=== PATIENT | male | born 1980 | race Caucasian/White ===

== ENCOUNTER → 2016-12-15 | Outpatient (CLI) | payer OTHER ==
--- NOTE | 2016-12-15 13:27 | REP ---
MRI LEFT KNEE WITH AND WITHOUT CONTRAST: TECHNIQUE: Axial proton density fat saturation, sagittal proton density T2 STIR, water excitation, coronal proton density, proton density fat saturation. Sagittal T1 fat sat, axial T1 fat sat, post IV gadolinium axial and sagittal T1 fat sat with the intravenous administration of 18 mL gadolinium. The menisci demonstrate no evidence of a tear. The cruciate and collateral ligaments appear intact. Extensor mechanism appears intact. Medial and lateral patellar retinacula appear intact. Mild increased signal in the patellar cartilage particularly along the lateral patellar facet appears to represent mild chondromalacia. No osteochondral defect is seen. No abnormal marrow signal or enhancement is seen. There is no occult fracture. No bone lesions are seen. There is a small joint effusion, with a small amount of fluid extending into the medial popliteal fossa. This extends below the semimembranosus and semitendinosus tendons. There is mild ill-defined high signal and enhancement in the knee joint anteriorly centrally compatible with an area of synovitis. IMPRESSION: No evidence of meniscal tear. Cruciate and collateral ligaments intact. Mild chondromalacia patella. Small joint effusion. Mild synovitis anteriorly in the joint. Signed by Vladimir Real MD 12/15/2016 02:21 P
== END ==
LOC: M RAD 10:12
PROVIDERS: ATTEND Physician Assistant
DX: M25.562 Pain in left knee (principal); M22.42 Chondromalacia patellae, left knee; M65.9 Synovitis and tenosynovitis, unspecified; M25.462 Effusion, left knee
CPT/HCPCS: 73723; A9576

== ENCOUNTER → 2017-01-26 | Outpatient (REF) | payer OTHER ==
[2017-01-26 10:45] LABS: #MOTILE SPERM COUNTED 20.5; % MOTILITY 50 (> 25%); TOTAL # SPERM COUNTED 40.5 M/ml
== END ==
LOC: M LAB REF 09:33
DX: N46.8 Other male infertility (principal)

== ENCOUNTER → 2018-03-05 | Outpatient (REF) | payer OTHER ==
[2018-03-05 12:07] LABS: SEMEN APPEARANCE OPAQUE (OPAQUE); SEMEN VOLUME 3.5 ml (4.0-5.0)
[2018-03-05 12:08] LABS: SEMEN VISCOSITY LIQUID (LIQUID); SEMEN pH 8.5 (7.0-8.0)
[2018-03-05 12:12] LABS: % NORMAL FORMS < 4 % (>=4); IMMOTILITY 49 %; NON PROGRESSIVE MOTILITY (c) 39 %; PROGRESSIVE MOTILITY (a) 12 % (>=32); SPERM CONCENTRATION 8.8 M/ml (>=15.0); SPERM# 30.8 M/Ejac (>=39); TOTAL FUNCTIONAL 0.3 M/Ejac.; TOTAL MOTILITY 51 % (>=40); TOTAL PROGRESSIVE SPERM 3.7 M/Ejac.; WBC CONCENTRATION <=1 M/ml (<=1 M/ml)
== END ==
LOC: M LAB REF 11:41
DX: N46.9 Male infertility, unspecified (principal)
CPT/HCPCS: 89320

== ENCOUNTER → 2018-05-17 | Outpatient (REF) | payer OTHER ==
[2018-05-17 14:15] LABS: #IMMOTILE SPERM COUNTED 1.5; #MOTILE SPERM COUNTED 1; % MOTILITY 40 (> 40%); SEMEN APPEARANCE OPAQUE (OPAQUE); SEMEN VISCOSITY VISCOUS (LIQUID); SEMEN VOLUME 2.5 ML (4.0-5.0); SEMEN WBC <=1 M/ml (<=1 M/ml); SPERM ABNORMAL FORMS WBC'S NOTED; SPERM CONCENTRATION 1.2 M/ml (> 15 M/ml); TOTAL # SPERM COUNTED 2.5 M/ml
== END ==
LOC: M LAB REF 13:40
DX: N46.9 Male infertility, unspecified (principal)

== ENCOUNTER → 2018-11-30 | Outpatient (REF) | payer OTHER ==
[2018-11-30 10:05] LABS: SEMEN APPEARANCE OPAQUE (OPAQUE)
[2018-11-30 10:06] LABS: SEMEN VISCOSITY LIQUID (LIQUID); SEMEN VOLUME 1.5 ML (4.0-5.0); SEMEN WBC >1 M/ml (<=1 M/ml)
== END ==
LOC: M LAB REF 09:30
PROVIDERS: ATTEND Obstetrics & Gynecology Reproductive Endocrinology
DX: N46.9 Male infertility, unspecified (principal)

== ENCOUNTER 2019-02-07 05:55 | Inpatient (IN) | payer OTHER ==
[~2019-02-07] VITALS: Ht 188 cm; Wt 99.3 kg
[2019-02-07] VITALS (8 sets, daily range): BP systolic 133–144; BP diastolic 65–80; O2SAT 98
[2019-02-07] MEDS ORDERED: GABAPENTIN 300 MG CAP PO ONE (06:00)
[2019-02-07] MEDS ORDERED: LR 1,000 ML IV ONE (06:00)
[2019-02-07] MEDS ORDERED: PERCOCET 5MG/325MG TAB PO ONE (06:00)
[2019-02-07] MEDS ORDERED: CLINDAMYCIN 600 MG in APPROPRIATE DILUENT 1 EA IV ONE (06:00)
[2019-02-07] MEDS ORDERED: BUPIVACAINE/EPIN 0.25% 30 ML VIAL As Ordered ONE (07:14)
[2019-02-07] MEDS ORDERED: THROMBIN SOLN 20,000 UNITS KIT As Ordered ONE (07:14)
[2019-02-07] MEDS ORDERED: BUPIVACAINE HCL 0.5% 10 ML VIAL As Ordered ONE (07:15)
[2019-02-07] MEDS ORDERED: BUPIVACAINE LIPOSOME/PF 1.3% 20ML VIAL (13.3MG/ML)(EXPAREL)(C9290 PER1MG) As Ordered ONE (07:15)
[2019-02-07] MEDS ORDERED: EPINEPHrine INJ 1 MG/ML 1ML AMP As Ordered ONE (07:15)
[2019-02-07] MEDS ORDERED: VANCOMYCIN HCL 500 MG/10 ML VIAL (J3370) As Ordered ONE (07:15)
[2019-02-07] MEDS ORDERED: BACITRACIN PWD 50,000 UNITS VIAL As Ordered ONE (07:15)
[2019-02-07] MEDS ORDERED: TRANEXAMIC ACID 100 MG/ML 10ML VIAL As Ordered ONE (07:15)
[2019-02-07] MEDS ORDERED: MIDAZOLAM INJ 2 MG/2 ML VIAL (J2250) As Ordered ONE (07:22)
[2019-02-07] MEDS ORDERED: fentaNYL 100 MCG/2 ML INJECTION (J3010) As Ordered ONE (07:22)
[2019-02-07] MEDS ORDERED: PROPOFOL 200 MG/20 ML VIAL As Ordered ONE (07:22)
[2019-02-07] MEDS ORDERED: LIDOCAINE 2% INJ 100 MG/5 ML SDV (FOR ANES.) As Ordered ONE (07:22)
[2019-02-07] MEDS ORDERED: ONDANSETRON 4MG/2ML VIAL (J2405) As Ordered ONE (07:22)
[2019-02-07] MEDS ORDERED: ROCURONIUM BROMIDE 50 MG/5 ML VIAL As Ordered ONE ×2 (07:22→11:36)
[2019-02-07] MEDS ORDERED: METOCLOPRAMIDE INJ 10MG/2ML VIAL (J2765) As Ordered ONE (07:22)
[2019-02-07] MEDS ORDERED: HYDROmorphone HCL 2 MG/ML 1ML VIAL (J1170) As Ordered ONE (08:12)
[2019-02-07] MEDS ORDERED: dexameTHASONE 4 MG/ML 1ML VIAL (J1100) As Ordered ONE (11:36)
[2019-02-07] MEDS ORDERED: KETOROLAC 60 MG/2 ML VIAL (J1885) As Ordered ONE (11:36)
[2019-02-07] MEDS ORDERED: fentaNYL 100 MCG/2 ML INJECTION (J3010) IV PRN (12:45)
[2019-02-07] MEDS ORDERED: MEPERIDINE INJ 25 MG/ML VIAL (J2175) IV PRN (12:45)
[2019-02-07] MEDS ORDERED: HYDROMORPHONE HCL 0.5 MG/ 0.5 ML SYRINGE (J1170 PER 1) IV PRN ×2 (12:45)
[2019-02-07] MEDS ORDERED: METOCLOPRAMIDE INJ 10MG/2ML VIAL (J2765) IV PRN (12:45)
[2019-02-07] MEDS ORDERED: ONDANSETRON 4MG/2ML VIAL (J2405) IV PRN (12:45)
[2019-02-07] MEDS ORDERED: CYCLOBENZAPRINE 10 MG TAB PO PRN (12:45)
[2019-02-07] MEDS ORDERED: PERCOCET 5MG/325MG TAB PO PRN ×2 (12:45)
[2019-02-07] MEDS ORDERED: ACETAMINOPHEN TAB 650MG DOSE (2X325MG) PO PRN (12:45)
[2019-02-07] MEDS ORDERED: LR 1,000 ML IV SCH (12:45)
[2019-02-07] MEDS ORDERED: PROMETHAZINE INJ 25 MG/ML VIAL (J2550) IV PRN (12:45)
--- NOTE | 2019-02-07 14:03 | RO ---
DATE OF SURGERY: 02/07/2019 PREOPERATIVE DIAGNOSIS: Pars defect with spondylolisthesis at L3-4. POSTOPERATIVE DIAGNOSIS: Pars defect with spondylolisthesis at L3-4. PROCEDURE PERFORMED: L3-L4 intertransverse posterior arthrodesis, L3-4 implantation of nonsegmental instrumentation, harvest and placement of left iliac crest morselized bone graft for spine surgery intertransverse. SURGEON: Jim Castaneda MD FUNERAL ASSISTANT: Michael Blanton, Physician Supervisor Packing Room ANESTHESIA: General. ESTIMATED BLOOD LOSS: Less than 150 mL, replaced with crystalloid. No complications. INDICATIONS: Significant back discomfort that limits his activities with plain film and MRI evidence of pars defect bilateral at L3-4. CONSENT: Reviewed in detail, including a walter discussion of the pathology involved. procedure proposed, alternatives including doing nothing, risks including but not limited to pain, failure, infection, bleeding, blood loss, incomplete relief of symptoms, nerve injury, need for more surgery, or other problems. The patient agrees to proceed with surgery. OPERATIVE COURSE: Identified in the holding area. Site and side verified. Brought to the operating room once general endotracheal anesthesia was administered. He was positioned in the prone position for exposure of the lumbar spine on the Kiel frame. Next, once I and the tar boiler were comfortable with the patient's positioning, he was sterilely prepped and draped in the usual fashion. Landmarks were palpated. Incision was outlined with a marking pen. I stood initially on the patient's left side. Mr. Blanton on the right side. I wore loupe magnification throughout. Next, line of the incision was infiltrated with 0.25% Marcaine with epinephrine. The incision was about three fingerbreadths wide, made with a #10 blade, developed down through skin and subcuticular tissues to the posterior lumbar fascia. Dissection continued down the spinous process of 3 over the lamina of 3. A divot was drilled in the lamina superior to this and a marked radial dense marker was placed in the divot. A cross-table lateral was taken to verify we were at the 2-3 facet complex. Next, once this was accomplished, we further exposed the transverse process of L3 at that area, as well as the transverse process of 4 on the left side and the 3-4 facet complex. Next, I switched to the other side, and Mr. Blanton assisted with Tricia retractors on further exposing transverse processes on the left. Then, dissection was accomplished on the right side using a hot knife; and similarly, we went out to the transverse processes with Mr. Blanton assisting with the Tricia retractor. Next, the pars defects were able to be directly visualized. Next, there was some hypertrophic bone immediately lateral to the pars defect, but this level did seem to be significantly mobile. Next, once we had the exposure, we placed pedicle screws. I placed on the right L4 level the high-speed bur, opened the pedicle, cannulated the pedicle. Fluoroscopy was utilized in AP and lateral plane to verify pedicle trajectory, followed by use of a ball-tipped guide, followed by a 6.0 tap, followed by a ball-tipped guide, measured off the ball-tipped guide for a 45-mm screw on the right at L4. At L4, we placed the 45-mm screw. Next, at L3, we cannulated the pedicle in a similar fashion, including the ball-tipped guide, verifying pedicle trajectory and pedicle competence. We did plug the screw hole here with bone wax so that I could access the transverse processes for the bone grafting. Next, on the contralateral left side, we approached the pedicles in a similar fashion, including placing the screw at the L4 level and cannulating the pedicle at the L3 level, and then plugging it with wax. We verified all pedicles with the ball-tipped wire. Next, at this stage through a separate fascial incision, we opened the posterior superior iliac spine. I removed posterior superior iliac spine using a [place], and then we utilized Lerner curettes to remove morselized bone graft from the iliac crest on the patient's left side. Mr. Blanton assisted by holding a Tricia retractor to help expose the area. Next, once I obtained the iliac crest bone graft, we irrigated, placed Gelfoam as well as some tranexamic acid (TXA) into the iliac crest defect, and then closed the fascial structure over that wound with interrupted #1 stitch. Next, once this was accomplished, Mr. Blanton utilized the Tricia retractor to expose the transverse processes on the left. I decorticated them using a high-speed bur and placed iliac crest bone graft between the transverse processes. Then, I sunk the L3 pedicle screw and placed the connecting alfred on the patient's left side. We did lock the inferior screw. The connecting alfred was 45 mm. We slightly distracted across the 3-4 level. Next, the toppiece cutter was then locked with the torque counter torque device. Next, we placed additional donor bone and local bone mixed with demineralized bone matrix putty over the iliac crest bone and over the facet complex and pars defect, which again had been decorticated. Next, the contralateral side, the arthrodesis inducted in a similar fashion. First, the iliac crest placement over the decorticated transverse processes, followed by placement of the L3 pedicle screw, followed by placement of the connecting alfred under slight distraction, torqued with the torque counter torque device, decortication of the lamina and pars defects, and placement of donor graft mixed with demineralized bone matrix putty and local bone graft. Next, once this was accomplished, we did place vancomycin crystals within the tulip heads of the screws. We had irrigated, as well. We had let TXA machine staker the wound for 1 minute. Next, final fluoroscopic images were taken and reflect good alignment of the pedicle screws at 3-4. Mr. Blanton participated in the entirety of the case. [employer]bloc hardware 45 x 7 mm pedicle screws times four, 45 mm connecting rods, 6.35 .
[2019-02-07] MEDS ORDERED: CLINDAMYCIN 900 MG in APPROPRIATE DILUENT 1 EA IV ONE (15:00)
[2019-02-08] VITALS (7 sets, daily range): BP systolic 117–129; BP diastolic 53–66; O2SAT 98
--- NOTE | 2019-02-08 07:56 | REP ---
Lumbar spine, single portable cross-table lateral view in the operating room: The tip of a metallic probe is identified posterior to the L2-L3 posterior elements at the disc space level. Electronically Signed by Vladimir Weldon MD 02/07/2019 09:05 A
[2019-02-08] MEDS: METAMUCIL (PSYLLIUM) PACKET PO SCH (08:20)
[2019-02-08] MEDS: PERCOCET 5MG/325MG TAB PO PRN ×2 (08:20→21:43)
[2019-02-08] MEDS: ONDANSETRON 4 MG TAB (S0181) PO PRN (18:20)
[2019-02-09] MEDS: PERCOCET 5MG/325MG TAB PO PRN ×2 (03:33→09:35)
[2019-02-09] MEDS: ONDANSETRON 4 MG TAB (S0181) PO PRN ×2 (03:40→09:34)
[2019-02-09 06:00] VITALS: BP 133/61
[2019-02-09] MEDS ORDERED: MIRALAX *UNIT DOSE* 17GM PACKET PO SCH (09:00)
[2019-02-09] MEDS ORDERED: MOM 30ML SUSPENSION UDC PO ONE (09:00)
[2019-02-09] MEDS: METAMUCIL (PSYLLIUM) PACKET PO SCH (09:34)
[2019-02-10] MEDS ORDERED: ONDA4TAB5 PO (20:14)
[2019-02-10] MEDS ORDERED: OXYC1TAB23 PO (20:14)
== END 2019-02-09 10:10 | disposition home or self-care (01) | DRG 460 ==
LOC: M SDC 05:55 → EDSTATUS 07:30 → M MS5PR 11:50 → M SDC 13:15 → M MS5PR 02-09 10:10 → M SDC 02-09 10:10
PROVIDERS: ADMIT Orthopaedic Surgery; ATTEND Orthopaedic Surgery
PROC: 0SG10K1 Fusion of 2 or more Lumbar Vertebral Joints with Nonautologous Tissue Substitute, Posterior Approach, Posterior Column, Open Approach (ICD-10-PCS; principal; 2019-02-07 07:30)
DX: M43.16 Spondylolisthesis, lumbar region (principal); G47.30 Sleep apnea, unspecified; R11.0 Nausea; Z88.0 Allergy status to penicillin

== ENCOUNTER 2019-02-10 20:08 | Emergency (ER) | payer OTHER ==
[~2019-02-10] VITALS: Ht 188 cm; Wt 100.0 kg
[2019-02-10] MEDS ORDERED: ONDA4TAB5 PO (20:14)
[2019-02-10] MEDS ORDERED: OXYC1TAB23 PO (20:14)
[2019-02-10 21:38] LABS: BASO % 0.4 % (0.0-1.0); EOS # 0.1 10^3/uL (0.0-0.50); EOS % 1.2 % (0.0-3.0); HEMATOCRIT 36.7 % (42.0-52.0); HEMOGLOBIN 12.7 g/dl (13.5-17.5); LYMPH # 1.5 10^3/uL (1.5-4.5); LYMPH % 13.6 % (24.0-44.0); MEAN CORPUSCULAR HEMOGLOBIN 29.1 pg (27.0-33.0); MEAN CORPUSCULAR HGB CONC 34.6 g/dl (32.0-36.5); MEAN CORPUSCULAR VOLUME 84.2 fl (80.0-96.0); MONO # 0.8 10^3/uL (0.0-0.8); MONO % 6.9 % (0.0-5.0); NEUTROPHILS # 8.7 10^3/uL (1.8-7.7); NEUTROPHILS % 77.5 % (36.0-66.0); PLATELET COUNT, AUTOMATED 161 10^3/uL (150-450); RED BLOOD COUNT 4.36 10^6/uL (4.30-6.10); WHITE BLOOD COUNT 11.2 10^3/uL (4.0-10.0)
--- NOTE | 2019-02-10 21:54 | ER ---
DATE OF ER CONSULTATION: 02/10/2019 CHIEF COMPLAINT: Postoperative incision redness and swelling. OBJECTIVE The patient is approximately 3 days status post lumbar spinal fusion surgery done by Dr. Leonel dunn at [facility]. He was discharged earlier this week. Today later this evening his noticed some redness and swelling around the incision site, took his temperature at that time and it was 100 degrees. She did call the answering service and I instructed them to proceed forward to the emergency department which they did promptly for evaluation. The patient denies any new neurologic symptoms in his bilateral lower extremities. No new bowel or bladder symptoms. No saddle anesthesia and he has had no increase in his pain at the operative site. He does not have a personal or family history of blood clots or bleeding disorders and he has no calf pain or tenderness bilaterally. Really just isolated concern about the redness and swelling. OBJECTIVE Awake, alert and oriented times three, well-appearing male in no acute distress, appropriately dressed and well nourished. Vital signs: Temperature is 98.8, pulse rate 94, respiratory rate 16, blood pressure 122/58 and pulse oximetry reading is 95% on room air. Focused examination of the lumbar spine surgical site. The incision is dry. There is no active drainage. It is intact. There is an area of redness and low grade swelling extending around his flanks on either side of the surgical incision. This area of concern matches closely to the contours of his postoperative back brace. In the bilateral lower extremities he has 5/5 strength with dorsiflexion and plantar flexion of the feet. He has the ability to raise his heels off the bed against resistance grossly 4+ or 5/5 quadriceps strength bilaterally. He does have sensation intact to light touch in the bilateral lower extremities, L2-S1 with negative ankle clonus bilaterally. Lab studies are pending. ASSESSMENT: Postoperative swelling possible, contact dermatitis or bruising from the back brace after lumbar spinal fusion. PLAN: It should be okay to discharge to home at this point. I will obtain some lab studies for baseline. They are to monitor the wound closely and return promptly for any worsening, for wound drainage, fevers, chills or for any other concerns. I have instructed them to try to offload the pressure of the brace on the lower back to decrease the trauma in this area. I did discuss with them the possibility of atelectasis or less likely occult pulmonary embolism being the cause of the subtle increase in temperature that he experienced briefly by report of the and they will continue to monitor for that and try and restore his breathing to normal as well. He intends to followup in the outpatient clinic tomorrow if the symptoms are not improved. I did discuss this briefly with Dr. Castaneda this evening and he is essentially in agreement with that plan although he did not see the patient himself has I was data collection specialist. INDICATION Increase for TPA MTDD
[2019-02-10 21:56] LABS: BLOOD UREA NITROGEN 14 MG/DL (7-18); CALCIUM LEVEL 7.7 MG/DL (8.5-10.1); CARBON DIOXIDE LEVEL 29 MEQ/L (21-32); CHLORIDE LEVEL 102 MEQ/L (98-107); CREATININE FOR GFR 0.88 MG/DL (0.70-1.30); GLOMERULAR FILTRATION RATE > 60.0 (>60); GLUCOSE, FASTING 129 MG/DL (70-100); POTASSIUM SERUM 3.9 MEQ/L (3.5-5.1); SODIUM LEVEL 138 MEQ/L (136-145)
[2019-02-10 21:57] LABS: ERYTHROCYTE SEDIMENTATION RATE 56 mm/hr (0-15)
[2019-02-10] MEDS ORDERED: CLINDAMYCIN 150 MG CAP PO ONE (22:30)
[2019-02-10 22:32] VITALS: BP 115/58
== END 2019-02-10 22:36 | disposition home or self-care (01) ==
LOC: M ED 20:08
DX: L03.312 Cellulitis of back [any part except buttock and flank] (principal); Z98.1 Arthrodesis status; Z98.890 Other specified postprocedural states; G47.33 Obstructive sleep apnea (adult) (pediatric); Z88.0 Allergy status to penicillin